=== PATIENT | female | born 1960 | race Caucasian/White ===

== ENCOUNTER 2024-11-23 15:03 | Emergency (ER) | payer OTHER ==
[2024-11-23] MEDS ORDERED: IOHEXOL 350 MG/ML 100 ML VIAL IV ONE ×2 (15:30→15:37)
[2024-11-23] MEDS ORDERED: SODIUM CHLORIDE 0.9% 100 ML BAG IV ONE (15:30)
[2024-11-23] MEDS ORDERED: SODIUM CHLORIDE 0.9% 100 ML IV ONE (15:38)
[2024-11-23 15:42] LABS: BASO # 0.0 10*3/uL (0.0-0.1); BASO % 0.4 % (0.0-1.0); EOS # 0.1 10*3/uL (0.0-0.4); EOS % 0.7 % (1.0-4.0); MEAN CELL VOLUME 96.0 fl (81.0-99.0); MEAN CORPUSCULAR HGB 31.1 pg (27.0-31.0); MEAN PLATELET VOLUME 11.1 fl (9.6-12.3); MONO # 0.4 10*3/uL (0.1-1.0); MONO % 5.9 % (3.0-9.0); NEUT # 5.0 10*3/uL (2.3-7.9); NEUT % 68.9 % (47.0-73.0); NUCLEATED RED BLOOD CELL 0.0 % (0.0-0.0); NUCLEATED RED BLOOD CELL 0.0 10*3/uL (0.0-0.0); PLATELET COUNT AUTOMATED 201 10*3/uL (130-400); RED CELL DISTRI WIDTH 13.9 % (0-14.5)
[2024-11-23 16:05] LABS: BILIRUBIN Negative (Negative); BLOOD Negative (Negative); CLARITY Clear (Clear); COLOR Yellow (Yellow); KETONE Negative (Negative); LEUKO ESTERASE Negative (Negative); NITRITE Negative (Negative); PH 7.0 (4.5-8.0); SPECIFIC GRAVITY >= 1.030 (1.001-1.030); UROBILINOGEN 0.2 E.U./dl (0.0-1.0)
[2024-11-23 16:06] LABS: ACT PARTIAL THROMBO TIME 28.5 SECONDS (20.0-32.1)
[2024-11-23 16:08] LABS: BUN 9 mg/dl (9-23); CPK 43 U/L (34-171); SGPT/ALT 19 U/L (5-49)
[2024-11-23 16:09] LABS: ETHYL ALCOHOL < 3.0 mg/dl (<3)
[2024-11-23 16:12] LABS: URINE AMPHETAMINES Negative (1000ng/ml); URINE BARBITURATES Negative (200ng/ml); URINE BENZODIAZEPINES Negative (200ng/ml); URINE CANNABINOIDS (THC) Negative (50ng/ml); URINE COCAINE Negative (300ng/ml); URINE METHADONE Negative (300ng/ml); URINE OPIATES Negative (300ng/ml); URINE PHENCYCLIDINE Negative (25ng/ml)
[2024-11-23 16:17] LABS: BACTERIA TRACE
[2024-11-23] MEDS ORDERED: RECOMBINANT IV ONE ×2 (17:25→17:35)
[2024-11-23] MEDS ORDERED: INFUSION IV ONE (17:25)
[2024-11-23] MEDS ORDERED: ALTEPLASE IV ONE ×2 (17:25→17:35)
== END 2024-11-23 23:33 ==
LOC: ED 15:03
PROVIDERS: Emergency Medicine
DX: I63.9 Cerebral infarction, unspecified (principal); Z86.73 Personal history of transient ischemic attack (TIA), and cerebral infarction without residual deficits; Z90.711 Acquired absence of uterus with remaining cervical stump

== ENCOUNTER 2025-02-18 12:37 | Emergency (ER) | payer MEDICARE ==
[~2025-02-18] VITALS: Ht 160 cm; Wt 68.0 kg
[2025-02-18] MEDS ORDERED: SODIUM CHLORIDE 0.9% 500 ML IV ONE (13:05)
[2025-02-18 13:25] LABS: BILIRUBIN Negative (Negative); BLOOD Negative (Negative); CLARITY Turbid (Clear); COLOR Yellow (Yellow); KETONE Negative (Negative); LEUKO ESTERASE Negative (Negative); NITRITE Negative (Negative); PH 8.0 (4.5-8.0); SPECIFIC GRAVITY 1.020 (1.001-1.030); UROBILINOGEN 0.2 E.U./dl (0.0-1.0)
[2025-02-18 13:26] LABS: BASO # 0.1 10*3/uL (0.0-0.1); BASO % 0.6 % (0.0-1.0); EOS # 0.1 10*3/uL (0.0-0.4); EOS % 1.1 % (1.0-4.0); MEAN CELL VOLUME 93.9 fl (81.0-99.0); MEAN CORPUSCULAR HGB 31.3 pg (27.0-31.0); MEAN PLATELET VOLUME 11.2 fl (9.6-12.3); MONO # 0.7 10*3/uL (0.1-1.0); MONO % 6.2 % (3.0-9.0); NEUT # 6.6 10*3/uL (2.3-7.9); NEUT % 63.4 % (47.0-73.0); NUCLEATED RED BLOOD CELL 0.0 % (0.0-0.0); NUCLEATED RED BLOOD CELL 0.0 10*3/uL (0.0-0.0); PLATELET COUNT AUTOMATED 240 10*3/uL (130-400); RED CELL DISTRI WIDTH 13.8 % (0-14.5)
[2025-02-18 13:46] LABS: BUN 18 mg/dl (9-23)
[2025-02-18] MEDS ORDERED: Na Phos, Dibasic/Na Phos, Mo 1 EA BOT R ONE (13:50)
[2025-02-18 13:53] LABS: EPITHELIAL CELLS 0-2; WBC 0-2 wbc/hpf (0-5)
[2025-02-18] MEDS ORDERED: COLACE100 MG PO (15:17)
[2025-02-18] MEDS ORDERED: MIRALAX POWDER17 G1 PO (15:17)
== END 2025-02-18 15:35 | disposition home or self-care (01) ==
LOC: ED 12:37
PROVIDERS: Emergency Medicine
DX: K59.00 Constipation, unspecified (principal); G43.909 Migraine, unspecified, not intractable, without status migrainosus; Z79.899 Other long term (current) drug therapy; Z88.0 Allergy status to penicillin; Z88.2 Allergy status to sulfonamides; Z98.890 Other specified postprocedural states

== ENCOUNTER 2025-02-27 16:05 | Observation (INO) | payer MEDICARE ==
[~2025-02-27] VITALS: Ht 160 cm; Wt 75.5 kg
[~2025-02-27 16:05] MED LIST: COLACE100 MG PO; MIRALAX POWDER17 G1 PO
[2025-02-27 16:14] VITALS: BP 131/85
[2025-02-27] MEDS ORDERED: IOHEXOL 350 MG/ML 100 ML VIAL IV ONE ×2 (16:40→16:45)
[2025-02-27] MEDS ORDERED: SODIUM CHLORIDE 0.9% 100 ML BAG IV ONE (16:40)
[2025-02-27] MEDS ORDERED: SODIUM CHLORIDE 0.9% 100 ML IV ONE (16:45)
[2025-02-27 16:54] LABS: BASO # 0.0 10*3/uL (0.0-0.1); BASO % 0.2 % (0.0-1.0); EOS # 0.0 10*3/uL (0.0-0.4); EOS % 0.1 % (1.0-4.0); MEAN CELL VOLUME 92.5 fl (81.0-99.0); MEAN CORPUSCULAR HGB 31.3 pg (27.0-31.0); MEAN PLATELET VOLUME 10.5 fl (9.6-12.3); MONO # 0.5 10*3/uL (0.1-1.0); MONO % 3.9 % (3.0-9.0); NEUT # 10.5 10*3/uL (2.3-7.9); NEUT % 84.3 % (47.0-73.0); NUCLEATED RED BLOOD CELL 0.0 % (0.0-0.0); NUCLEATED RED BLOOD CELL 0.0 10*3/uL (0.0-0.0); PLATELET COUNT AUTOMATED 244 10*3/uL (130-400); RED CELL DISTRI WIDTH 13.4 % (0-14.5)
[2025-02-27 17:05] LABS: ACT PARTIAL THROMBO TIME 27.5 SECONDS (20.0-32.1)
[2025-02-27 17:23] LABS: BUN 16 mg/dl (9-23); CPK 39 U/L (34-171)
[2025-02-27 17:39] VITALS: BP 116/74
[2025-02-27] MEDS ORDERED: Acetaminophen/Hydrocodone 5 MG/325 MG TABLET PO PRN (18:30)
[2025-02-27] MEDS ORDERED: SEROQUEL XR400 MG PO (19:15)
[2025-02-27] MEDS ORDERED: MELATONIN 10 M1 EACH PO (19:15)
[2025-02-27] MEDS ORDERED: EFFEXOR XR75 M1 PO (19:16)
[2025-02-27] MEDS ORDERED: ASPIRIN ADULT L81 M2 PO (19:16)
[2025-02-27] MEDS ORDERED: SINGULAIR10 M1 PO (19:16)
[2025-02-27] MEDS ORDERED: LIPITOR80 MG PO (19:17)
[2025-02-27] MEDS ORDERED: PROTONIX40 MG PO (19:18)
[2025-02-27] MEDS ORDERED: HYDROXYZINE HCL50 MG PO (19:18)
[2025-02-27] MEDS ORDERED: REMERON SOLTAB45 MG PO (19:19)
[2025-02-27 20:15] VITALS: BP 112/72
[2025-02-27 23:02] LABS: BILIRUBIN Negative (Negative); BLOOD Negative (Negative); CLARITY Clear (Clear); COLOR Yellow (Yellow); KETONE Trace (Negative); LEUKO ESTERASE Negative (Negative); NITRITE Negative (Negative); PH 5.5 (4.5-8.0); SPECIFIC GRAVITY >= 1.030 (1.001-1.030); UROBILINOGEN 0.2 E.U./dl (0.0-1.0)
[2025-02-27 23:35] LABS: EPITHELIAL CELLS 31-40
[2025-02-28] VITALS: BP 110/68
[2025-02-28] MEDS ORDERED: Polyethylene Glycol 3350 17 GM PACKET PO PRN (01:20)
[2025-02-28 06:26] LABS: BUN 19 mg/dl (9-23)
[2025-02-28 06:27] LABS: BASO # 0.1 10*3/uL (0.0-0.1); BASO % 0.6 % (0.0-1.0); EOS # 0.1 10*3/uL (0.0-0.4); EOS % 1.3 % (1.0-4.0); MEAN CELL VOLUME 93.0 fl (81.0-99.0); MEAN CORPUSCULAR HGB 30.6 pg (27.0-31.0); MEAN PLATELET VOLUME 11.1 fl (9.6-12.3); MONO # 0.7 10*3/uL (0.1-1.0); MONO % 7.7 % (3.0-9.0); NEUT # 4.8 10*3/uL (2.3-7.9); NEUT % 50.4 % (47.0-73.0); NUCLEATED RED BLOOD CELL 0.0 % (0.0-0.0); NUCLEATED RED BLOOD CELL 0.0 10*3/uL (0.0-0.0); PLATELET COUNT AUTOMATED 268 10*3/uL (130-400); RED CELL DISTRI WIDTH 13.8 % (0-14.5)
[2025-02-28 08:00] VITALS: BP 152/98
[2025-02-28 09:07] LABS: LDL CHOLESTEROL 74 mg/dL (9-159)
[2025-02-28 09:37] LABS: VITAMIN D, 25-HYDROXY 36.7 ng/mL (30-100)
[2025-02-28] MEDS ORDERED: Venlafaxine Hydrochloride 75 MG CAP PO SCH (10:00)
[2025-02-28] MEDS ORDERED: DOCUSATE SODIUM 100 MG CAP PO SCH (10:00)
[2025-02-28] MEDS ORDERED: ASPIRIN, CHEWABLE 81 MG TAB PO SCH (10:00)
[2025-02-28] MEDS ORDERED: ATORVASTATIN CALCIUM 80 MG TAB PO SCH ×2 (10:00→18:00)
[2025-02-28] MEDS ORDERED: CYANOCOBALAMIN 1,000 MCG/ML VIAL IM ONE (10:40)
[2025-02-28] MEDS ORDERED: MELATONIN5 M7 PO (11:26)
[2025-02-28 12:00] VITALS: BP 118/64
[2025-02-28 16:00] VITALS: BP 118/67
[2025-02-28] MEDS ORDERED: hydrOXYzine 50 MG CAP PO SCH (22:00)
[2025-03-01] MEDS ORDERED: ASPIRIN ENTERIC COATED 81 MG TAB PO SCH (10:00)
[2025-03-01] MEDS ORDERED: ATORVASTATIN CALCIUM 80 MG TAB PO SCH (10:00)
== END 2025-02-28 21:55 | disposition home or self-care (01) ==
LOC: ED 16:05 → EDHOLD 18:20 → 5E 18:20
PROVIDERS: Emergency Medicine; Student in an Organized Health Care Education/Training Program; ADMIT Internal Medicine; ATTEND Internal Medicine
DX: G45.9 Transient cerebral ischemic attack, unspecified (principal); I16.9 Hypertensive crisis, unspecified; D72.828 Other elevated white blood cell count; E87.1 Hypo-osmolality and hyponatremia; K21.9 Gastro-esophageal reflux disease without esophagitis; F41.9 Anxiety disorder, unspecified; F32.A Depression, unspecified; J45.909 Unspecified asthma, uncomplicated; R65.10 Systemic inflammatory response syndrome (SIRS) of non-infectious origin without acute organ dysfunction; F17.210 Nicotine dependence, cigarettes, uncomplicated; Z79.899 Other long term (current) drug therapy